=== PATIENT | female | born 1950 | race American Indian/Alaskan Native ===

== ENCOUNTER 2016-05-29 21:43 | Emergency (ER) | payer SELFPAY ==
[2016-05-29 23:12] VITALS: BP 146/88
== END 2016-05-30 03:10 | disposition left against medical advice (07) ==
LOC: ED 21:43
DX: M79.631 Pain in right forearm (principal); M25.531 Pain in right wrist; Z53.21 Procedure and treatment not carried out due to patient leaving prior to being seen by health care provider